=== PATIENT | female | born 1985 | race African-American/Black ===

== ENCOUNTER 2019-09-06 14:21 | Emergency (ER) | payer MEDICAID ==
[~2019-09-06] VITALS: Ht 165.1 cm; Wt 85.7 kg
--- NOTE | 2019-09-06 14:44 | NUR ---
ED Nurse Note: Pt walked in from home reporting sore throat and cough since yesterday with green phlegm. Pt reports being positive for Influenza A in june. Pt denies recent travel. Respirations even and unlabored on room air. Vitals stable as documented.
[2019-09-06 14:46] VITALS: BP 111/75
--- NOTE | 2019-09-06 14:50 | NUR ---
ED Nurse Note: xray @ bedside
--- NOTE | 2019-09-06 15:12 | Diagnostic Imaging Report ---
Indication: Dyspnea Comparison: None A single view chest radiograph was obtained. Findings: Cardiomediastinal appearance is within normal limits for age. The lungs are clear. Pulmonary vascularity is appropriate. The diaphragmatic contour is smooth and costophrenic angles are sharp. No pleural effusions are identified. The bones are unremarkable. Impression: No acute findings
[2019-09-06] MEDS ORDERED: TYLENOL325 MG ORAL (15:13)
--- NOTE | 2019-09-06 15:13 | Emergency Room Report ---
History of Present Illness General Chief Complaint: Upper Respiratory Illness Source: Patient Present Illness HPI 34-year-old female presents with sore throat, no fevers no chills, she endorses a dry cough no aggravating leaving factors severity is mild, patient presents for evaluation Allergies: Coded Allergies: No Known Allergies (Unverified , 09/06/19) Patient History Past Medical History: see triage record Last Menstrual Period: 08/16/2019 Now: No Reviewed Nursing Documentation: PMH: Agreed; PSxH: Agreed Nursing Documentation-PMH Past Medical History: No Stated History Review of Systems All Other Systems: negative except mentioned in HPI Physical Exam Vital Signs Date Time Temp Pulse Resp B/P (MAP) Pulse Ox O2 Delivery O2 Flow Rate FiO2 09/06/19 14:31 98.4 95 16 111/75 (87) 100 Room Air Sp02 EP Interpretation: reviewed, normal General Appearance: well appearing, no apparent distress, alert Head: normocephalic, atraumatic Eyes: bilateral eye PERRL, bilateral eye EOMI ENT: uvula midline, moist mucus membranes, nasal congestion, tonsillar swelling Neck: supple, thyroid normal, supple/symm/no masses Respiratory: lungs clear, no respiratory distress, no retraction, no accessory muscle use Cardiovascular #1: normal peripheral pulses, regular rate, rhythm, no edema, no gallop, no murmur Gastrointestinal: non tender, soft, no guarding, no rebound Musculoskeletal: normal inspection Neurologic: alert, oriented x3 Psychiatric: mood/affect normal Skin: no rash, warm/dry Medical Decision Making Diagnostic Impression: Primary Impression: Pharyngitis Qualified Codes: J02.9 - Acute pharyngitis, unspecified ER Course 34-year-old female presents with sore 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 Patient most likely with viral pharyngitis Decadron provided disposition home with return precautions follow-up with PCP Chest X-Ray Diagnostic Results Chest X-Ray Diagnostic Results : Chest X-Ray Ordered: Yes # of Views/Limited/Complete: 1 View Indication: Other - Cough EP Interpretation: Yes Interpretation: no consolidation, no effusion, no pneumothorax, no acute cardiopulmonary disease Impression: No acute disease Electronically Signed by: Ye Casey MD Last Vital Signs Date Time Temp Pulse Resp B/P (MAP) Pulse Ox O2 Delivery O2 Flow Rate FiO2 3/5/20 14:46 98.4 95 16 111/75 100 Room Air Disposition: HOME, SELF-CARE Condition: Stable Scripts Acetaminophen (Tylenol) 325 Mg Tablet 650 MG ORAL Q6H PRN for Prn Pain/Headache/Temp > 101, #30 TAB 0 Refills Prov: Ye Casey MD 09/06/19 Referrals: [facility] Patient Instructions: Pharyngitis, [id number] Additional Instructions: The patient was provided with discharge instructions, notified to follow-up with a primary care doctor and or specialist in the next 24-48 hours, and to return to the ED if they have worsening of their symptoms. Please note that this report is being documented using Spread[employer] technology. This can lead to erroneous entry secondary to incorrect interpretation by the dictating instrument. Ye Casey MD Sep 06, 2019 15:13
[2019-09-06 15:15] VITALS: BP 109/74
--- NOTE | 2019-09-06 15:15 | NUR ---
ER DISCHARGE NOTE: Patient is cleared to be discharged per ERMD, pt is aox4, on room air, with stable vital signs as documented. pt was given dc and prescription instructions and was able to verbalize understanding. pt id band removed. pt is able to ambulate with steady gait. pt took all belongings.
== END 2019-09-06 15:15 | disposition home or self-care (01) ==
LOC: EMR 14:50
DX: J02.9 Acute pharyngitis, unspecified (principal)
CPT/HCPCS: 71045; 81025; J8540; Z7502; 99283

== ENCOUNTER 2019-09-22 19:56 | Emergency (ER) | payer MEDICAID ==
[~2019-09-22] VITALS: Ht 165.1 cm; Wt 86.2 kg
[2019-09-22 19:55] VITALS: BP 135/95
[~2019-09-22 19:56] MED LIST: TYLENOL325 MG ORAL
--- NOTE | 2019-09-22 20:58 | Emergency Room Report ---
History of Present Illness General Chief Complaint: Upper Respiratory Illness Source: Patient Present Illness HPI Patient presents with persistent cough. This began with being diagnosed with influenza in June. She is still had a cough since that time. She was prescribed an inhaler at that time. She used it transiently but not recently. She was seen 2 weeks ago with throat pain and received oral dexamethasone 1 dose. Sore throat is somewhat better but still stuttering and intermittent. She has had nausea. There is been no vomiting. She also had some deep left calf pain that felt like a muscle cramp to her. The pain is resolved completely. She denies any hemoptysis or pleuritic chest pain at this time. She reports hearing herself wheeze. The cough is keeping her awake at night. She denies fevers. She had a normal menstruation a week ago. She does not believe she is . No chills, palpitations, nausea, vomiting, diarrhea, dysuria, abdominal pain, shortness of breath, joint pain, rashes, depression, anxiety, visual changes, dizziness, headache. No family history of pulmonary embolus. COVID-19 risk:Contact w/high r: No COVID-19 risk:Travel to affect: No Has patient experienced saleh: Yes Coronavirus symptoms experienc: Cough Allergies: Coded Allergies: No Known Allergies (Unverified , 09/06/19) Patient History Past Medical History: see triage record Social History: Denies: smoking - second hand Social History Narrative desk job at [employer] Last Menstrual Period: na Reviewed Nursing Documentation: PMH: Agreed; PSxH: Agreed Nursing Documentation-PMH Past Medical History: No Stated History Hx Cardiac Problems: No Hx Hypertension: No Hx Pacemaker: No Hx Asthma: No Hx COPD: No Hx Diabetes: No Hx Cancer: No Hx Gastrointestinal Problems: No Hx Dialysis: No History Of Psychiatric Problem: No Hx Neurological Problems: No Hx Cerebrovascular Accident: No Hx Seizures: No Review of Systems All Other Systems: negative except mentioned in HPI Physical Exam Vital Signs Date Time Temp Pulse Resp B/P (MAP) Pulse Ox O2 Delivery O2 Flow Rate FiO2 09/22/19 19:51 99.0 80 18 135/95 (108) 98 Room Air Sp02 EP Interpretation: reviewed, normal General Appearance: well appearing, no apparent distress, GCS 15, non-toxic Head: normocephalic Eyes: bilateral eye normal inspection, bilateral eye PERRL, bilateral eye EOMI ENT: TMs + canals normal, moist mucus membranes, pharyngeal erythema Neck: full range of motion, supple Respiratory: lungs clear, normal breath sounds, no respiratory distress Cardiovascular #1: regular rate, rhythm, no edema Cardiovascular #2: 2+ radial (R) Gastrointestinal: normal inspection, non tender, no mass, non-distended Musculoskeletal: back normal, normal range of motion, no calf tenderness, gait/ station normal, Dony's Sign negative Neurologic: alert, oriented x3, grossly normal Psychiatric: mood/affect normal Skin: no rash, warm/dry Medical Decision Making Diagnostic Impression: Primary Impression: Cough Additional Impression: Bronchospasm ER Course Patient presents with persistent cough with bronchospasm after influenza. Based on her history and her vital signs [place] it is less likely. In addition she is concerned about possible lung infection. Prednisone and bronchodilators are indicated. She has an inhaler at home. She is not in respiratory distress at this time. Chest x-ray is ordered. Although she complained about left calf tenderness evaluation for DVT is negative. Suspicion for pulmonary embolus extremely low. Chest x-ray clear. Discussed findings and assessment. Discussed treatment plan. No medical emergency at this time. Suspicion for COVID-19 low. Patient stable for outpatient observation and treatment. Chest X-Ray Diagnostic Results Chest X-Ray Diagnostic Results : Chest X-Ray Ordered: Yes # of Views/Limited/Complete: 1 View Indication: Other EP Interpretation: Yes Interpretation: no consolidation, no effusion, no pneumothorax Impression: No acute disease Electronically Signed by: Electronically signed by Sotero Mann MD Last Vital Signs Date Time Temp Pulse Resp B/P (MAP) Pulse Ox O2 Delivery O2 Flow Rate FiO2 09/22/19 21:42 98.8 84 16 125/78 98 Room Air Status: improved Disposition: HOME, SELF-CARE Condition: Improved Scripts Guaifenesin/Codeine Phos* (ROBITUSSIN AC*) 118 Ml Liquid 5 ML ORAL Q6H PRN for For Cough, #90 ML 0 Refills Prov: Sotero Mann MD 09/22/19 Prednisone* (PREDNISONE*) 20 Mg Tablet 40 MG ORAL DAILY, #10 TAB Prov: Sotero Mann MD 09/22/19 Referrals: [facility],REFERRING (PCP) Sotero Mann MD Sep 22, 2019 20:58
--- NOTE | 2019-09-22 21:36 | Diagnostic Imaging Report ---
EXAM: XR Chest, 1 View CLINICAL HISTORY: COUGH TECHNIQUE: Frontal view of the chest. COMPARISON: Chest x-ray 09/06/2019. FINDINGS: Lungs: Unremarkable. No consolidation. Pleural space: No pleural effusion. No pneumothorax. Heart: Unremarkable. No cardiomegaly. IMPRESSION: No acute cardiopulmonary abnormality.
[2019-09-22] MEDS ORDERED: GUAIFENESIN-CO118 M1 ORAL (21:38)
[2019-09-22] MEDS ORDERED: PREDNISONE20 MG ORAL (21:38)
[2019-09-22 21:42] VITALS: BP 125/78
== END 2019-09-22 21:42 | disposition home or self-care (01) ==
LOC: EDBD 19:56 → EMR 20:38
DX: R05 Cough (principal); J98.01 Acute bronchospasm
CPT/HCPCS: 71045; J7512; Z7502; 99283

== ENCOUNTER 2020-07-26 16:25 | Emergency (ER) | payer MEDICAID, OTHER ==
[~2020-07-26] VITALS: Ht 167.6 cm; Wt 83.0 kg
[~2020-07-26 16:25] MED LIST changes: +GUAIFENESIN-CO118 M1 ORAL; +PREDNISONE20 MG ORAL
--- NOTE | 2020-07-26 16:45 | NUR ---
ED Nurse Note: pt presents to ED c/o KUMAR and swelling/numbness over her temples onset 2 weeks ago. pt denies any injury or trauma, has not felt lightheaded, experienced loss of balance or any vision disturbances. pt reports she recently had a (-) COVID test, denies any fevers/chills or cough. pt also reports mild nausea without vomiting
[2020-07-26 17:13] LABS: APPEARANCE,URINE CLEAR; BILIRUBIN, URINE NEGATIVE (NEGATIVE); COLOR,URINE PALE YELLOW; GLUCOSE, URINE (UA) NEGATIVE (NEGATIVE); KETONES,URINE NEGATIVE (NEGATIVE); LEUKOCYTE ESTERASE ,URINE NEGATIVE (NEGATIVE); NITRITE,URINE NEGATIVE (NEGATIVE); PH,URINE 6.5 (4.5-8.0); PROTEIN,URINE NEGATIVE (NEGATIVE); UROBILINOGEN,URINE NORMAL MG/DL (0.0-1.0)
[2020-07-26] MEDS ORDERED: Ketorolac 30mg Inj IV ONE (17:15)
--- NOTE | 2020-07-26 17:15 | NUR ---
ED Nurse Note: pt refusing IV meds, prefers PO meds. LANDON Salguero notified
--- NOTE | 2020-07-26 17:27 | Emergency Room Report ---
History of Present Illness General Chief Complaint: Headache Source: Patient Present Illness HPI Patient is a 35-year-old female presents for increased bilateral jaw pain and swelling near the anabaptism regions. Reports having moderate headache. Denies recent cough. No recent fever. Reports having negative coronavirus exams. Denies any diarrhea. Prior history of sleep apnea. Denies any weakness to her extremities. Denies prior medical history other than sleep apnea. No prior headaches. 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 COVID-19 Screening: Negative COVID-19 COVID-19 Testing Source: work Patient History Past Medical History: see triage record Last Menstrual Period: 1-11 Now: No Reviewed Nursing Documentation: PMH: Agreed; PSxH: Agreed Nursing Documentation-PMH Hx Hypertension: No Hx Pacemaker: No Hx Asthma: No Hx COPD: No Hx Diabetes: No Hx Cancer: No Hx Gastrointestinal Problems: No Hx Dialysis: No Hx Neurological Problems: No Hx Cerebrovascular Accident: No Hx Seizures: No Review of Systems All Other Systems: negative except mentioned in HPI Physical Exam Vital Signs Date Time Temp Pulse Resp B/P (MAP) Pulse Ox O2 Delivery O2 Flow Rate FiO2 07/26/20 16:39 98.4 80 20 107/77 (87) 98 Room Air Sp02 EP Interpretation: reviewed, normal General Appearance: normal inspection, well appearing, no apparent distress, alert, GCS 15 Head: atraumatic ENT: normal ENT inspection, hearing grossly normal, normal voice Neck: normal inspection, full range of motion, supple, no bony tend Respiratory: normal inspection, lungs clear, normal breath sounds, no respiratory distress, no retraction, no wheezing Cardiovascular #1: regular rate, rhythm, no edema Gastrointestinal: normal inspection, normal bowel sounds, non tender, soft, no guarding, no hernia Genitourinary: no CVA tenderness Musculoskeletal: normal inspection, back normal, normal range of motion Neurologic: alert, motor strength/tone normal, sales enablement specialist III-XII nml as tested, oriented x3, responsive, speech normal, normal inspection Psychiatric: normal inspection, judgement/insight normal, mood/affect normal Skin: no rash Medical Decision Making Diagnostic Impression: Primary Impression: Headache ER Course Patient presented for headache. Differential diagnosis include was not limited to TMJ arthritis, coronavirus infection, meningitis among others. CT imaging and laboratory testing was ordered to patient's complaints of new onset headache. Does not appear to have any meningismus. Patient does not appear to be in any acute distress.CT imaging read by radiology showed no acute pathology. Patient was given medication for headache. Does not appear to have any evid ence of focal neurologic deficit. Patient advised to return if she had worsening of her headache or any other concerns. This medical record is generated with [employer] tint layer software. There may be some tint layer discrepancies related to use of this software Labs Test 07/26/20 16:50 07/26/20 17:10 Urine Color Pale yellow Urine Appearance Clear Urine pH 6.5 (4.5-8.0) Urine Specific Clements 1.005 (1.005-1.035) Urine Protein Negative (NEGATIVE) Urine Glucose (UA) Negative (NEGATIVE) Urine Ketones Negative (NEGATIVE) Urine Blood Negative (NEGATIVE) Urine Nitrite Negative (NEGATIVE) Urine Bilirubin Negative (NEGATIVE) Urine Urobilinogen Normal MG/DL (0.0-1.0) Urine Leukocyte Esterase Negative (NEGATIVE) Urine RBC 0-2 /HPF (0 - 2) Urine WBC 0-2 /HPF (0 - 2) Urine Squamous Epithelial Cells Few /LPF (NONE/OCC) Urine Bacteria Few /HPF (NONE) Urine HCG, Qualitative Negative (NEGATIVE) White Blood Count 7.3 K/UL (4.8-10.8) Red Blood Count 4.72 M/UL (4.20-5.40) Hemoglobin 13.1 G/DL (12.0-16.0) Hematocrit 41.0 % (37.0-47.0) Mean Corpuscular Volume 87 FL (80-99) Mean Corpuscular Hemoglobin 27.7 PG (27.0-31.0) Mean Corpuscular Hemoglobin Concent 31.9 G/DL (32.0-36.0) Red Cell Distribution Width 12.9 % (11.6-14.8) Platelet Count 302 K/UL (150-450) Mean Platelet Volume 7.7 FL (6.5-10.1) Neutrophils (%) (Auto) 50.4 % (45.0-75.0) Lymphocytes (%) (Auto) 38.8 % (20.0-45.0) Monocytes (%) (Auto) 7.4 % (1.0-10.0) Eosinophils (%) (Auto) 1.3 % (0.0-3.0) Basophils (%) (Auto) 2.1 % (0.0-2.0) Prothrombin Time 10.3 SEC (9.30-11.50) Prothromb Time International Ratio 0.9 (0.9-1.1) Activated Partial Thromboplast Time 28 SEC (23-33) Sodium Level 140 MMOL/L (136-145) Potassium Level 4.1 MMOL/L (3.5-5.1) Chloride Level 106 MMOL/L (98-107) Carbon Dioxide Level 27 MMOL/L (21-32) Anion Gap 7 mmol/L (5-15) Blood Urea Nitrogen 12 mg/dL (7-18) Creatinine 1.1 MG/DL (0.55-1.30) Estimat Glomerular Filtration Rate > 60 mL/min (>60) Glucose Level 93 MG/DL (74-106) Calcium Level 8.9 MG/DL (8.5-10.1) Total Bilirubin < 0.1 MG/DL (0.2-1.0) Aspartate Amino Transf (AST/SGOT) 24 U/L (15-37) Alanine Aminotransferase (ALT/SGPT) 16 U/L (12-78) Alkaline Phosphatase 63 U/L (46-116) Total Protein 7.5 G/DL (6.4-8.2) Albumin 3.6 G/DL (3.4-5.0) Globulin 3.9 g/dL Albumin/Globulin Ratio 0.9 (1.0-2.7) Last Vital Signs Date Time Temp Pulse Resp B/P (MAP) Pulse Ox O2 Delivery O2 Flow Rate FiO2 07/26/20 16:39 98.4 80 20 107/77 (87) 98 Room Air Status: improved Disposition: HOME, SELF-CARE Condition: Stable Scripts Loratadine (Claritin*) 10 Mg Tab.rapdis 10 MG PO DAILY for Allergies, #30 TAB Prov: Uriel Caal MD 07/26/20 Ibuprofen* (MOTRIN*) 600 Mg Tablet 600 MG ORAL Q8H PRN for FOR PAIN, #30 TAB 0 Refills Prov: Uriel Caal MD 07/26/20 Uriel Caal MD Jul 26, 2020 17:27
[2020-07-26 17:28] VITALS: BP 107/77
[2020-07-26 17:40] LABS: BASOPHILS % (AUTO) 2.1 % (0.0-2.0); EOSINOPHILS % (AUTO) 1.3 % (0.0-3.0); HEMOGLOBIN 13.1 G/DL (12.0-16.0); LYMPHOCYTES % (AUTO) 38.8 % (20.0-45.0); MEAN CORPUSCULAR VOLUME 87 FL (80-99); MONOCYTES % (AUTO) 7.4 % (1.0-10.0); NEUTROPHILS % (AUTO) 50.4 % (45.0-75.0); PLATELET COUNT 302 K/UL (150-450); RED BLOOD COUNT 4.72 M/UL (4.20-5.40); RED CELL DISTRIBUTION WIDTH 12.9 % (11.6-14.8); WHITE BLOOD COUNT 7.3 K/UL (4.8-10.8)
[2020-07-26 17:42] LABS: ANION GAP 7 mmol/L (5-15); BLOOD UREA NITROGEN 12 mg/dL (7-18); CALCIUM 8.9 MG/DL (8.5-10.1); CARBON DIOXIDE 27 MMOL/L (21-32); CHLORIDE 106 MMOL/L (98-107); CREATININE 1.1 MG/DL (0.55-1.30); INR 0.9 (0.9-1.1); POTASSIUM 4.1 MMOL/L (3.5-5.1); SODIUM 140 MMOL/L (136-145)
--- NOTE | 2020-07-26 17:46 | Diagnostic Imaging Report ---
EXAM: CT Head Without Intravenous Contrast CLINICAL HISTORY: PAIN TECHNIQUE: Axial computed tomography images of the head/brain without intravenous contrast. CTDI [place] 53.40 [place] [address] mGy-cm. One or more of the following dose reduction techniques were used: automated exposure control, adjustment of the mA and/or kV according to patient size, use of iterative reconstruction technique. COMPARISON: No relevant prior studies available. FINDINGS: Brain: No acute hemorrhage, large hypodensity, or significant mass effect. 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 Ventricles: No significant abnormality. Bones/joints: No acute abnormality. Soft tissues: No significant abnormality. Sinuses: No significant abnormality. Mastoid air cells: No significant abnormality. IMPRESSION: No acute intracranial abnormality.
[2020-07-26 17:48] LABS: ALANINE AMINOTRANSFERASE 16 U/L (12-78); ALBUMIN 3.6 G/DL (3.4-5.0); ALBUMIN/GLOBULIN RATIO 0.9 (1.0-2.7); ALKALINE PHOSPHATASE 63 U/L (46-116); ASPARTATE AMINO TRANSFERASE 24 U/L (15-37); BILIRUBIN,TOTAL < 0.1 MG/DL (0.2-1.0)
[2020-07-26] MEDS ORDERED: IBUPROFEN600 M1 ORAL (18:09)
[2020-07-26] MEDS ORDERED: LORATADINE10 M1 PO (18:09)
[2020-07-26 18:20] VITALS: BP 107/77
--- NOTE | 2020-07-26 18:20 | NUR ---
ER DISCHARGE NOTE: Patient is cleared to be discharged per ERMD, pt is aox4, on room air, with stable vital signs. pt was given dc and prescription instructions, pt was able to verbalize understanding, pt id band and iv site removed without complications. pt is able to ambulate with steady gait. pt took all belongings.
== END 2020-07-26 18:20 | disposition home or self-care (01) ==
LOC: EMR 16:50
DX: R51.9 Headache, unspecified (principal); R68.84 Jaw pain
CPT/HCPCS: 36415; 70450; 80053; 81001; 81025; 85025; 85610; 85730; J1885; Z7502; 99284

== ENCOUNTER 2020-08-07 22:31 | Emergency (ER) | payer OTHER ==
[~2020-08-07] VITALS: Ht 165.1 cm; Wt 89.8 kg
[~2020-08-07 22:31] MED LIST changes: +IBUPROFEN600 M1 ORAL; +LORATADINE10 M1 PO
--- NOTE | 2020-08-07 23:00 | NUR ---
ED Nurse Note: Pt ambulated into ED, AAO x4, C/O headache x2 months. Provider in room with pt at this time.
--- NOTE | 2020-08-07 23:13 | Emergency Room Report ---
History of Present Illness General Chief Complaint: Headache Source: Patient, Medical Record Present Illness HPI This is a 35-year-old female with no past medical history. She presents with chief complaint of headache. Is been ongoing problem for over a month. She described the pain as a throbbing sensation over her bilateral temporal area. She said that area swelled up. She was here about [address] scan and labs were normal. She had a CT scan of the head with IV contrast at another place and her neurologist said there is a slight narrowing of one of the artery. She is awaiting a CTA of her neck. Patient took her blood pressure today but the machine was broken. She came here to have a blood pressure check. Her blood pressure here initially was systolic 139. Patient denies any focal deficit. She does not want to take any medication. Her neurologist told her to take magnesium and riboflavin and put her on a Mediterranean diet. She did admit to weight gain during the pandemic. Allergies: Coded Allergies: No Known Allergies (Unverified , 09/06/19) COVID-19 Screening Contact w/high risk pt: No Recent Travel to affected area: No Experienced COVID-19 symptoms?: No COVID-19 symptoms experienced: Cough COVID-19 Testing performed ROUND UP RING HAND: No COVID-19 Screening: Negative COVID-19 COVID-19 Testing Source: nasal Patient History Past Medical History: see triage record, old chart reviewed Past Surgical History: none Pertinent Family History: none Social History: Denies: smoking Last Menstrual Period: 07/18/2020 Now: No Immunizations: other Reviewed Nursing Documentation: PMH: Agreed; PSxH: Agreed Nursing Documentation-PMH Hx Hypertension: No Hx Pacemaker: No Hx Asthma: No Hx COPD: No Hx Diabetes: No Hx Cancer: No Hx Gastrointestinal Problems: No Hx Dialysis: No Hx Neurological Problems: No Hx Cerebrovascular Accident: No Hx Seizures: No Review of Systems Eye: Denies: eye pain, blurred vision ENT: Denies: ear pain, nose congestion, throat swelling Respiratory: Denies: cough, shortness of breath Cardiovascular: Denies: chest pain, palpitations Gastrointestinal: Denies: abdominal pain, diarrhea, nausea, vomiting Musculoskeletal: Denies: back pain, joint pain Skin: Denies: rash Neurological: Reports: headache; Denies: numbness Endocrine: Denies: increased thirst, increased urine Hematologic/Lymphatic: Denies: easy bruising All Other Systems: negative except mentioned in HPI Physical Exam Vital Signs Date Time Temp Pulse Resp B/P (MAP) Pulse Ox O2 Delivery O2 Flow Rate FiO2 08/07/20 22:39 98.2 96 16 132/79 (96) 99 Room Air Vitals unremarkable Sp02 EP Interpretation: reviewed, normal General Appearance: well appearing, no apparent distress, alert Head: normocephalic, atraumatic Eyes: bilateral eye PERRL, bilateral eye EOMI ENT: hearing grossly normal, normal pharynx Neck: full range of motion, supple, no meningismus Respiratory: chest non-tender, lungs clear, normal breath sounds Cardiovascular #1: regular rate, rhythm, no murmur Gastrointestinal: normal bowel sounds, non tender, no mass, no organomegaly, no bruit, non-distended Musculoskeletal: back normal, normal range of motion, gait/station normal Psychiatric: mood/affect normal Medical Decision Making Diagnostic Impression: Primary Impression: Headache Qualified Codes: G44.209 - Tension-type headache, unspecified, not intractable ER Course Patient presents with headache. This appear to be tension-like headache. Other differential includes cluster headache, migraine or other unspecified headache. She had a recent CT scan which is negative for CVA, TIA, bleed or intracranial process. No evidence of meningitis. Patient reassured. I doubt that this is a cervical artery dissection since this been ongoing for a month and she has no associated trauma. Last Vital Signs Date Time Temp Pulse Resp B/P (MAP) Pulse Ox O2 Delivery O2 Flow Rate FiO2 08/07/20 22:39 98.2 96 16 132/79 (96) 99 Room Air Status: improved Disposition: HOME, SELF-CARE Condition: Stable [facility] Patient Instructions: General Headache Without Cause Additional Instructions: Follow-up with your neurologist as scheduled. Return if symptoms worsen. Nacho Mann MD Aug 07, 2020 23:13
--- NOTE | 2020-08-07 23:16 | NUR ---
ED Nurse Note: Pt reports she has been having frontal headaches that feel like there is a rubberband around her head. Pt has started seeing neurologist because of these headaches. Pt reports she came in tonight, because her blood pressure cuff broke and she didn't know if her blood pressure was high. Pt reports she does not want anything for pain.
--- NOTE | 2020-08-07 23:21 | NUR ---
ED Nurse Note: Pt reports she is feeling sleepy and her B/P is 130/79, and she just wants to go home. Provider aware, pt discharged.
[2020-08-07 23:22] VITALS: BP 130/79
== END 2020-08-07 23:24 | disposition home or self-care (01) ==
LOC: EMR 22:50
DX: G44.209 Tension-type headache, unspecified, not intractable (principal)
CPT/HCPCS: 99281